=== PATIENT | male | born 1995 | race Two or more races ===

== ENCOUNTER → 2025-05-03 12:57 | Outpatient (BNVA) | payer SELFPAY | PROVIDERS: Visit Provider Orthopaedic Surgery | DX: Q65.89 Other specified congenital deformities of hip (principal); M54.50 Low back pain, unspecified; R20.0 Anesthesia of skin | CPT/HCPCS: 72110; 73523 ==

== ENCOUNTER 2025-05-21 10:46 | Outpatient (CLI) | payer SELFPAY ==
--- NOTE | 2025-05-21 11:00 | MR_ITS ---
WS: [id number] MRI LUMBAR SPINE NONCONTRAST HISTORY: lumbar pain, LEFT leg and hip pain for 1 year. COMPARISON: None available. TECHNIQUE: Sagittal and axial multisequence imaging is submitted. Mild straightening of the normal lumbar lordosis. No acute fracture or marrow edema. Disc spaces and vertebral body heights are well-preserved. Conus terminates normally at L1-2 disc level. L1-L2: Normal. L2-L3: Normal. L3-L4: Mild disc bulging. Very mild encroachment upon the subarticular recesses. No significant stenosis. L4-L5: Mild disc bulging and facet arthritis. Small amount of fluid in the facet joints. RIGHT foraminal disc protrusion with annular fissure and in slight contact with the RIGHT traversing and exiting nerve roots. Mild RIGHT foraminal stenosis. L5-S1: Large central disc protrusion extends into the LEFT subarticular recess with contact and displacement of the LEFT S1 nerve root. LEFT S1 nerve root is slightly larger than the RIGHT and slightly edematous. Large disc extends into the LEFT foramen along with vertebral body osteophytes. Mild LEFT foraminal stenosis. Additional very slight contact on the RIGHT traversing S1 nerve root. Paravertebral soft tissues are negative. MR/MR lumbar spine wo con* [id number] IMPRESSION: 1. Large central to LEFT subarticular recess and foraminal disc protrusion at L5-S1. There is contact and displacement of the LEFT S1 nerve root. Lesser mini mal contact on the RIGHT S1 nerve root. Mild LEFT foraminal stenosis. 2. LEFT S1 nerve root is slightly enlarged and edematous suggesting acute neur itis. 3. RIGHT foraminal disc protrusion with annular fissure with mild contact on t he RIGHT traversing and exiting nerve roots. Mild RIGHT foraminal stenosis.
== END 2025-05-21 10:47 | disposition home or self-care (01) ==
LOC: RAD 10:48
PROVIDERS: Visit Provider Orthopaedic Surgery
DX: M51.362 Other intervertebral disc degeneration, lumbar region with discogenic back pain and lower extremity pain (principal); R20.0 Anesthesia of skin; R20.2 Paresthesia of skin; M47.816 Spondylosis without myelopathy or radiculopathy, lumbar region; M51.16 Intervertebral disc disorders with radiculopathy, lumbar region; M25.78 Osteophyte, vertebrae; M51.17 Intervertebral disc disorders with radiculopathy, lumbosacral region; M48.07 Spinal stenosis, lumbosacral region
CPT/HCPCS: 72148